=== PATIENT | male | born 1995 | race Caucasian/White ===

== ENCOUNTER 2017-11-24 23:04 | Emergency (ER) | payer BC ==
--- NOTE | 2017-11-25 00:31 | EDPHY ---
H & P Time Seen by Provider: 11/25/17 00:45 HPI/ROS: Chief complaint: Left hand laceration History of present illness: This is a 22-year-old male who presents to the emergency department for a left hand laceration. Patient reports he fell onto a glass bottle that broke, cutting his hand. He reports mild bleeding that has been easy to control. No report of abnormal coolness or paresthesias in the hand. He can still move the hand well. His tetanus is up-to-date. Smoking Status: Never smoked Physical Exam: General: Alert, nontoxic Skin: 5 cm laceration vertically oriented coursing through the thenar eminence of the left hand. No foreign bodies on inspection. Musculoskeletal: Patient has good range of motion and strength all corey all joints all digits of the left hand all corey of the left wrist. Vascular: Capillary refill brisk in all digits of the left hand. Radial pulse 2 +. Neurologic: Sensation intact throughout the left hand. Constitutional: Initial Vital Signs Temperature (C) 36.6 C 11/25/17 00:51 Heart Rate 112 H 11/25/17 00:51 Respiratory Rate 18 11/25/17 00:51 Blood Pressure 143/78 H 11/25/17 00:51 O2 Sat (%) 93 11/25/17 00:51 O2 Delivery Mode Room Air Allergies/Adverse Reactions: shellfish derived Allergy (Verified 11/24/17 23:12) Home Medications: Medication Instructions Recorded NK [No Known Home Meds] 11/24/17 MDM/Departure - MDM Imaging Results: Imaging Impressions Hand X-Ray 11/24/17 23:32 Impression: No evidence for acute osseous abnormality left hand. No evidence for radiopaque foreign body. Imaging: I viewed and interpreted images myself Procedures: Procedure: Laceration repair. Verbal consent was obtained from the patient. The 5 cm laceration on the left hand was anesthetized in the usual fashion. The wound was irrigated, draped and explored to its base with a gloved finger. There were no deep structures involved. No tendon injury was identified. The wound was repaired with 5 0 Prolene, 11 simple interrupted sutures. The wound repair was moderately complex laceration requiring mild wound debridement. The procedure was performed by myself. Procedure: Splint placement. A Velcro thumb spica splint was applied. After application of the splint I returned and re-examined the patient. The splint was adequately immobilizing the joint and distal to the splint the patient's circulation and sensation was intact. ED Course/Re-evaluation: Patient seen under the supervision of my secondary supervising physician Dr. Alfonso Garcia. Patient presents to the emergency department for a left hand laceration. The hand appears to be neurovascularly intact. X-rays negative. Wound is anesthetized, cleaned, repaired, dressed and splinted. I have discussed the importance of following up with a hand surgeon for recheck and referral information is provided. Strict return precautions are given. Patient voiced understanding and agreement with plan. Differential Diagnosis: Included but not limited to laceration, deep structure injury, foreign body contamination - Depart Disposition: Home, Routine, Self-Care Clinical Impression: Hand laceration Qualifiers: Encounter type: initial encounter Foreign body presence: without foreign body Laterality: left Qualified Code(s): S61.412A - Laceration without foreign body of left hand, initial encounter Condition: Good Instructions: Laceration (ED), Acute Wounds (ED) Additional Instructions: Follow-up with a hand surgeon next week for recheck without fail Stitches to be removed in 7-10 days If symptoms worsen or new symptoms develop return to the emergency room for recheck Referrals: NONE *PRIMARY CARE P,. [Primary Care Provider] - As per Instructions Emile Suero MD [Medical Doctor] - As per Instructions
[2017-11-25 00:52] VITALS: BP 143/78; PULSE 112; RESP 18; TEMP 97.9; O2SAT 93
== END 2017-11-25 00:52 | disposition home or self-care (01) ==
PROC: 0HQGXZZ Repair Left Hand Skin, External Approach (ICD-10-PCS; principal; 2017-11-24)
DX: S61.412A Laceration without foreign body of left hand, initial encounter (principal); W25.XXXA Contact with sharp glass, initial encounter
CPT/HCPCS: L3807